=== PATIENT | female | born 2000 | race Caucasian/White ===

== ENCOUNTER → 2021-09-15 | Outpatient (CLI) | payer OTHER | LOC: KOH-I 09-10 13:00 | DX: J32.9 Chronic sinusitis, unspecified (principal); J34.2 Deviated nasal septum | CPT/HCPCS: 70486 ==

== ENCOUNTER → 2021-10-27 | Day surgery (SDC) | payer OTHER ==
[~2021-10-27] MED LIST: CELEXA20 MG PO; CEPHALEXIN500 MG PO; HYDROCODONE-AC1 EACH PO; JUNEL FE 1.5 M1 EACH PO; PREDNISONE20 MG PO; [UNRECOGNIZED DRUG - OTHER]
== END | disposition home or self-care (01) ==
LOC: OR 06:01
DX: J32.9 Chronic sinusitis, unspecified (principal); J34.2 Deviated nasal septum; J34.3 Hypertrophy of nasal turbinates; F41.9 Anxiety disorder, unspecified; F17.290 Nicotine dependence, other tobacco product, uncomplicated; Z79.2 Long term (current) use of antibiotics; Z79.899 Other long term (current) drug therapy
CPT/HCPCS: 84703; C1726; J0690; J1100; J2001; J2405; J2704; J2710; J3010; J7040; J7120